=== PATIENT | female | born 1985 | race Caucasian/White ===

== ENCOUNTER 2020-06-05 01:26 | Emergency (ER) | payer BC ==
[~2020-06-05] VITALS: Ht 162.6 cm; Wt 79.4 kg
[2020-06-05 01:40] VITALS: BP_SYST 133
[2020-06-05] MEDS ORDERED: NACL 0.9% 1,000 ML IV ONE (02:22)
[2020-06-05] MEDS ORDERED: KETOROLAC TROMETHAMINE 30 MG VIAL IVP ONE (02:30)
[2020-06-05] MEDS ORDERED: ONDANSETRON HCL 4 MG/2 ML VIAL IVP ONE (02:30)
[2020-06-05] MEDS ORDERED: PANTOPRAZOLE SODIUM 40 MG/VIAL (PROTONIX) IVP ONE (02:30)
[2020-06-05 03:22] LABS: BASOPHILS % (AUTO) 0.2 % (0.0-2.0); EOSINOPHILS # (AUTO) 0.1 K/uL (0.0-0.4); EOSINOPHILS % (AUTO) 1.3 % (0.0-4.0); HEMATOCRIT 35.3 % (36-48); HEMOGLOBIN 12.1 g/dL (12.0-16.0); LYMPHOCYTES # (AUTO) 1.7 K/uL (1.0-5.5); MEAN CORPUSCULAR HEMOGLOBIN 30 pg (27-31); MEAN CORPUSCULAR HGB CONC 34 % (32-36); MEAN CORPUSCULAR VOLUME 87 fL (79.0-98.0); MONOCYTES # (AUTO) 0.8 K/uL (0.0-1.0); MONOCYTES % (AUTO) 10.2 % (1.7-9.3); NEUTROPHILS # (AUTO) 4.9 K/uL (1.8-7.7); NEUTROPHILS % (AUTO) 65.3 % (40.0-70.0); PLATELET COUNT (AUTO) 205 K/uL (130-430); RED BLOOD CELL COUNT(AUTO) 4.04 MIL/uL (4.2-6.2); RED CELL DISTRIBUTION WIDTH 12.5 % (9.0-15.0); WHITE BLOOD COUNT (AUTO) 7.4 K/uL (4.8-10.8)
[2020-06-05] MEDS ORDERED: DIPHENHYDRAMINE INJ 50 MG/ML VIAL IVP ONE (03:30)
[2020-06-05] MEDS ORDERED: fentaNYL CITRATE/PF 100 MCG/2 ML AMP IVP ONE (03:30)
[2020-06-05 03:35] LABS: CALCIUM 8.6 mg/dL (8.4-11.0); CREATININE 0.79 mg/dL (0.55-1.30); POTASSIUM 3.7 mmol/L (3.5-5.1)
[2020-06-05 03:39] LABS: ALBUMIN 3.4 g/dL (3.4-4.8); TOTAL BILIRUBIN 0.3 mg/dL (0.0-1.0)
[2020-06-05 05:30] VITALS: BP_SYST 128
== END 2020-06-05 05:30 | disposition home or self-care (01) ==
LOC: SED 01:26
DX: R10.13 Epigastric pain (principal)
CPT/HCPCS: 36415; 80053; 81025; 83690; 85025; 96361; 96374; 96375; 99284; C9113; J1200; J1885; J2405; J3010; J7030